=== PATIENT | male | born 1975 | race Caucasian/White ===

== ENCOUNTER 2016-08-06 11:58 | Emergency (ER) | payer BC ==
--- NOTE | 2016-08-06 12:19 | EDM.PDOC ---
ED HPI GENERAL MEDICAL PROBLEM - General Chief Complaint: General Stated Complaint: FISH HOOK Time Seen by Provider: 08/06/16 12:00 Source of Information: Reports: Patient History Limitations: Reports: No limitations - History of Present Illness INITIAL COMMENTS - FREE TEXT/NARRATIVE: THis is a 41yo M here for a fish hook of the left index fingertip. It is a 3 prong small hook. Onset: sudden Location: Reports: upper extremity, left Quality: Reports: Stabbing Severity: mild Improves with: Reports: None Worsens with: Reports: None ED ROS GENERAL - Review of Systems Review Of Systems: ROS reveals no pertinent complaints other than HPI. ED EXAM, GENERAL - Physical Exam Exam: See Below Exam Limited By: No limitations General Appearance: alert, WD/WN, no apparent distress Head: atraumatic, normocephalic Neck: normal inspection, supple Respiratory/Chest: no respiratory distress Cardiovascular: normal peripheral pulses Extremities: other (fish hook embedded in the lateral fingertip of the right index) ED GENERAL MEDICAL PROCEDURES - Additional/Other Procedure(s) Other (Free Text) Procedure(s): Area cleaned and prepped sterilely as possible. Tetanus addressed. Numbed with 1 % lidocaine 0.1mL. 25ga needle tracked to ricardo and removed without complications. Departure - Departure Time of Disposition: 12:18 Disposition: Home, Self-Care 01 Condition: good Clinical Impression: Fish hook injury of finger of left hand Qualifiers: Encounter type: initial encounter Qualified Code(s): S69.92XA - Unspecified injury of left wrist, hand and finger(s), initial encounter Instructions: Puncture Wound, [id number] Forms: ED Department Discharge - Problem List Review Problem List Initiated/Reviewed/Updated: Yes - Assessment/Plan Plan: Counseled on infection, bleeding and care of wound. Discussed f/u with PCP as needed.
== END 2016-08-06 12:15 | disposition home or self-care (01) ==
LOC: LB.ED 11:58
DX: S60.451A Superficial foreign body of left index finger, initial encounter (principal); W45.8XXA Other foreign body or object entering through skin, initial encounter
CPT/HCPCS: 99283